=== PATIENT | female | born 1950 | race Asian ===

== ENCOUNTER 2022-05-06 08:30 | Outpatient (CLI) | payer MEDICARE, BC | END 2022-05-06 08:31 | disposition home or self-care (01) | LOC: CSHMAMMO 08:30 | PROVIDERS: ATTEND Family Medicine | DX: Z12.31 Encounter for screening mammogram for malignant neoplasm of breast (principal) | CPT/HCPCS: 77063; 77067 ==

== ENCOUNTER 2022-06-11 09:29 | Outpatient (CLI) | payer MEDICARE, BC | END 2022-06-11 09:30 | disposition home or self-care (01) | LOC: CSHMAMMO 09:29 | PROVIDERS: ATTEND Internal Medicine Rheumatology | DX: Z13.820 Encounter for screening for osteoporosis (principal); M81.0 Age-related osteoporosis without current pathological fracture; M85.851 Other specified disorders of bone density and structure, right thigh; M85.852 Other specified disorders of bone density and structure, left thigh; Z78.0 Asymptomatic menopausal state | CPT/HCPCS: 77080 ==

== ENCOUNTER 2024-01-04 14:18 | Outpatient (CLI) | payer MEDICARE, BC | END 2024-01-04 14:19 | disposition home or self-care (01) | LOC: CSHMAMMO 14:18 | PROVIDERS: ATTEND Internal Medicine Rheumatology | DX: M81.0 Age-related osteoporosis without current pathological fracture (principal); M85.852 Other specified disorders of bone density and structure, left thigh | CPT/HCPCS: 77080 ==

== ENCOUNTER 2025-04-16 09:42 | Outpatient (CLI) | payer MEDICARE, BC ==
[2025-04-16] MEDS ORDERED: Iopamidol 300 61% 100 ML VIAL FS ONE (11:40)
== END 2025-04-16 09:43 | disposition home or self-care (01) ==
LOC: CSHCT 09:42
PROVIDERS: ATTEND Family Medicine
DX: R10.32 Left lower quadrant pain (principal)
CPT/HCPCS: 74177

== ENCOUNTER 2025-06-19 08:06 | Outpatient (CLI) | payer MEDICARE, BC | END 2025-06-19 08:07 | disposition home or self-care (01) | LOC: CSHMAMMO 08:06 | PROVIDERS: ATTEND Family Medicine | DX: Z12.31 Encounter for screening mammogram for malignant neoplasm of breast (principal) | CPT/HCPCS: 77063; 77067 ==

== ENCOUNTER 2025-07-31 09:04 | Outpatient (CLI) | payer MEDICARE, BC ==
[2025-07-31] MEDS ORDERED: Iopamidol 300 61% 100 ML VIAL FS ONE (11:13)
[2025-07-31 12:40] LABS: Estimated GFR - POC 68.0
== END 2025-07-31 09:05 | disposition home or self-care (01) ==
LOC: CSHCT 09:04
PROVIDERS: ATTEND Internal Medicine
DX: R07.0 Pain in throat (principal); J35.9 Chronic disease of tonsils and adenoids, unspecified
CPT/HCPCS: 70491; 82565